=== PATIENT | male | born 1995 | race Caucasian/White ===

== ENCOUNTER 2022-02-19 20:14 | Emergency (ER) | payer MEDICAID ==
[~2022-02-19] VITALS: Ht 162.6 cm; Wt 65.8 kg
--- NOTE | 2022-02-19 20:21 | NUR ---
pt bib ra from a [facility] overdose on fentanyl. pt was given narcan in the field. pt is a/o answers questions.
--- NOTE | 2022-02-19 20:26 | NUR ---
naveed officer sarah and officer mayela [id number] and [id number]. came here to see the pt.
[2022-02-19] MEDS ORDERED: SERT25TA PO (20:31)
--- NOTE | 2022-02-19 20:34 | NUR ---
pt placed on 4 liters nc as sat was 88 it is now at 92 percent
--- NOTE | 2022-02-19 20:50 | NUR ---
dR. Martino in for MSE.
[2022-02-19] MEDS ORDERED: IV NORMAL SALINE 1000 ML BAG IV ONE (21:00)
[2022-02-19 21:28] LABS: HEMATOCRIT 43.6 % (36.7-47.1); MEAN CORPUSCULAR HEMOGLOBIN 31.4 uug (23.8-33.4); MEAN CORPUSCULAR VOLUME 92.3 fL (73.0-96.2); PLATELET COUNT (AUTO) 320 K/uL (152-348)
[2022-02-19 21:38] LABS: ETHANOL < 3 MG/DL (0-0)
[2022-02-19 22:06] LABS: CARBON DIOXIDE 30 mmol/L (21-32); CHLORIDE 101 mmol/L (98-107); CREATININE 1.1 mg/dL (0.6-1.3); GLUCOSE 100 mg/dL (74-106); POTASSIUM 3.9 mmol/L (3.5-5.1); UREA NITROGEN, BLOOD 15 mg/dL (7-18)
[2022-02-19 22:12] LABS: ACETAMINOPHEN < 2.0 ug/mL (10-30); ALANINE AMINOTRANSFERASE 75 U/L (16-63); ALKALINE PHOSPHATASE 71 U/L (50-136); ASPARTATE AMINOTRANSFERASE 49 U/L (15-37); BILIRUBIN,DIRECT < 0.1 mg/dL (0.0-0.2); BILIRUBIN,TOTAL 0.3 mg/dL (0.2-1.0); TOTAL PROTEIN, SERUM 7.4 g/dL (6.4-8.2)
--- NOTE | 2022-02-19 23:02 | NUR ---
pt is noncompliant keeps trying to stand at the edge of the gour[place] has not given. a urine sample. informed the pt that if he does not give a urine sample we will need to place a catheter to provied a sample.
--- NOTE | 2022-02-19 23:12 | NUR ---
pt is noncompliant in keeping his oxygen in he is becoming noncompliant.
[2022-02-19] MEDS ORDERED: HALOPERIDOL LACTATE 5 MG/1 ML VIAL ONE (23:21)
[2022-02-19] MEDS ORDERED: diphenhydrAMINE 50 MG/1 ML VIAL ONE (23:21)
[2022-02-19] MEDS ORDERED: HALOPERIDOL LACTATE 5 MG/1 ML VIAL IV ONE (23:30)
[2022-02-19] MEDS ORDERED: diphenhydrAMINE 50 MG/1 ML VIAL IV ONE (23:30)
--- NOTE | 2022-02-20 00:33 | NUR ---
pt combative trying to get oob security called and other nursing staff to restrain the pt for his safety and the safety of others. pt is is constant view for his safety by nurisng staff.
[2022-02-20] MEDS ORDERED: LIDOCAINE 2% (GLYDO= UROJET) 10 ML JELLY MM ONE ×2 (00:37→00:45)
[2022-02-20] MEDS ORDERED: HALOPERIDOL LACTATE 5 MG/1 ML VIAL ONE (00:37)
[2022-02-20] MEDS ORDERED: HALOPERIDOL LACTATE 5 MG/1 ML VIAL IV ONE (00:45)
[2022-02-20 01:34] LABS: *BILIRUBIN,URIN NEGATIVE (NEGATIVE); *BLOOD, URINE NEGATIVE (NEGATIVE); *CLARITY,URINE CLEAR (CLEAR); *COLOR,URINE YELLOW (YELLOW); *KETONES,URINE NEGATIVE (NEGATIVE); *UROBILINOGEN,URINE 0.2 E.U./dl (NORMAL); LEUKOCYTE ESTERASE ,URINE NEGATIVE (NEGATIVE); NITRITE, URINE NEGATIVE (NEGATIVE); PH,URINE 5.5 (5.0-8.0); UGLUCOSE NEGATIVE (NEGATIVE)
[2022-02-20 01:52] LABS: *AMPHETAMINE, URINE NEGATIVE (NEGATIVE); *CANNABINOID, URINE NEGATIVE (NEGATIVE); *COCCAINE, URINE NEGATIVE (NEGATIVE); *OPIATE, URINE NEGATIVE (NEGATIVE); *PHENCYCLIDINE SCREEN,URINE NEGATIVE (NEGATIVE)
--- NOTE | 2022-02-20 02:04 | NUR ---
pt calm at this time not trying to remove medical equipment or trying to get oob.
--- NOTE | 2022-02-20 02:09 | NUR ---
pt hr increses to 140 when he is woken up and decreaes to 110 when he is calm and asleep. Dr. Martino made aware. pt blood pressure elevated at 169/82
--- NOTE | 2022-02-20 03:49 | NUR ---
notifed dr. cruz of elevated bp, no new orders.
[2022-02-20] MEDS ORDERED: IV NORMAL SALINE 500 ML BAG IV STA (04:39)
--- NOTE | 2022-02-20 05:43 | NUR ---
pt got oob of bed states you are holding me here I only took fentanly. Dr. Martino made aware. Dr. Martino states remove iv and pt can leave ama. pt refused to sign ama paperwork. and pt left the emergency room.
== END 2022-02-20 05:50 | disposition left against medical advice (07) ==
LOC: ER 20:17
DX: T40.411A Poisoning by fentanyl or fentanyl analogs, accidental (unintentional), initial encounter (principal); R40.0 Somnolence; Y92.89 Other specified places as the place of occurrence of the external cause; Z59.00 Homelessness unspecified; Z53.29 Procedure and treatment not carried out because of patient's decision for other reasons
CPT/HCPCS: 80076; 80048; 85025; 36415 ×2; 93005; 71045; 99285; 96374; 96375; 80299; 80320; 80307; 81003; 83880; 85379; 84484; J1200; J1630 ×2; J7040 ×2; A4663; G0480